=== PATIENT | male | born 1970 | race Caucasian/White ===

== ENCOUNTER → 2017-03-04 | Outpatient (CLI) | payer MEDICAID ==
--- NOTE | 2017-03-04 11:11 | CPEKG ---
Heart Rate: 59 RR Interval: 1017 P-R Interval: 168 QRSD Interval: 96 QT Interval: 412 QTC Interval: 409 P Dix: 62 QRS Dix: 73 T Wave Dix: -34 EKG Severity - NORMAL ECG - EKG Impression: SINUS RHYTHM Electronically Signed By: Elgin Nettles 04-Mar-2017 17:35:43
== END ==
LOC: FCP 10:45
PROVIDERS: ATTEND Nurse Practitioner Psychiatric/Mental Health
DX: Z13.6 Encounter for screening for cardiovascular disorders (principal)

== ENCOUNTER 2018-04-18 23:32 | Emergency (ER) | payer MEDICAID ==
[2018-04-18 23:41] VITALS: BP 138/88
[2018-04-18] MEDS ORDERED: OXYCODONE/APAP 5/325 TAB PO ONE (23:52)
--- NOTE | 2018-04-18 23:56 | EDPHY ---
H & P Stated Complaint: Fell going down cement steps onto right knee. Pain progressively worse Time Seen by Provider: 04/18/18 23:53 HPI/ROS: HPI: This is a 47-year-old male who presents with Chief Complaint: Fell going down cement steps and twisted right knee. Pain progressively worse Location: Right KNEE Quality: Injury Duration: Prior to arrival Signs and Symptoms: No bleeding, no radiation, no numbness, no weakness, no tingling, no incontinence, + decreased range of motion, + swelling, + pain, no fever Timing: Acute Severity: Moderate Context: Patient presents accompanied by his , with complaints of accidentally twisting his knee while walking to the [employer] stand to purchase a hot dogs at his son's football game. He has some placed in the marching band they were there to watch the half time show. Patient reports that he twisted his knee somehow and felt immediate, constant, nonradiating pain. Pain is increased with weight-bearing. He was wearing crux at the time. He reports that the pain is worsened with flexion of the knee and has now noted over the last hour mild swelling of the knee. Denies radiation, weakness, paresthesias. Patient reports that he fell recently at work and had a shoulder injury and landed directly on his right knee. 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 Modifying Factors: None Comment: ROS: A comprehensive 10 system review of systems is otherwise negative aside from elements mentioned in the history of present illness. MEDICAL/SURGICAL/SOCIAL HISTORY: Medical history: diabetes insipidus, bipolar, high cholesterol Surgical history: Denies Social history: . Employed. CONSTITUTIONAL: Polite and cooperative middle-aged white male, awake and alert , no obvious distress HEENT: Atraumatic and normocephalic. NECK: supple EXTREMITIES: 2/2 pulses, strength 5/5, right KNEE: Mild effusion, + medial and lateral joint line tenderness, full extension to 180, flexion to 90. Mild pain with varus and valgus exam. Mild pain with anterior drawer or posterior drawer test. DIP/PIP/MCP flexion/extension intact with good light touch sensation. no deformities, no clubbing, no cyanosis or edema. NEUROLOGICAL: no focal neuro deficits. GCS 15. Light touch sensation intact. SKIN: Warm and dry, no erythema. no rash. Good capillary refill. Source: Patient Exam Limitations: No limitations - Personal History Current Tetanus Diphtheria and Acellular Pertussis (TDAP): Unsure - Medical/Surgical History Hx Asthma: No Hx Chronic Respiratory Disease: No Hx Diabetes: No Hx Cardiac Disease: Yes Hx Renal Disease: No Hx Cirrhosis: No Hx Alcoholism: No Hx HIV/AIDS: No Hx Splenectomy or Spleen Trauma: No Other PMH: diabestes insipidus. bipolar, high cholesterol - Social History Smoking Status: Never smoked Constitutional: Initial Vital Signs Temperature (C) 36.8 C 04/18/18 23:38 Heart Rate 71 04/18/18 23:38 Respiratory Rate 16 04/18/18 23:38 Blood Pressure 138/88 H 04/18/18 23:38 O2 Sat (%) 99 04/18/18 23:38 O2 Delivery Mode Room Air Allergies/Adverse Reactions: No Known Allergies Allergy (Unverified 09/17/09 01:27) Home Medications: Medication Instructions Recorded Aspirin [Aspirin 81mg (OTC)] 81 mg PO HS 04/30/12 Carvedilol [Coreg (RX)] 6.25 mg PO BIDMEAL 04/30/12 Divalproex [Depakote 500 MG (RX)] 500 mg PO BID 04/30/12 Multivitamins [Multivitamin (OTC)] 1 each PO DAILY 04/30/12 Pravastatin Sodium 40 mg PO DAILY 04/30/12 QUETIAPINE FUMARATE [Seroquel Xr] 300 mg PO HS 04/30/12 QUEtiapine FUMARATE [Seroquel 300 mg PO HS 04/30/12 300mg (RX)] Verapamil HCl [Verapamil ER] 120 mg PO DAILY 04/30/12 lamOTRIGine [LamICTAL] 12.5 mg PO DAILY 04/30/12 risperiDONE [Risperdal 1mg (RX)] 2.5 mg PO HS 04/30/12 oxyCODONE/APAP 5/325 [Percocet 1 - 2 tab PO Q4H PRN #10 tab 04/18/18 5/325 (*)] Medical Decision Making ED Course/Re-evaluation: The x-ray ordered and via PAC shows no dislocation. + mild effusion noted, + patellar irregularity concerning for fracture Ice pack applied and given Percocet with adequate pain relief Concern for internal derangement Placed in knee immobilizer, crutches provided, orthopedic follow-up No signs of neurovascular compromise/tenting of skin/compartment syndrome/ extremities and joints examined above and below area of concern and are neurovascularly intact. This patient was seen under the supervision of my secondary supervising physician. I evaluated care for this patient independently. Discussed this patient with Dr. Crawley. Differential Diagnosis: Knee injury while [] including but not limited to fracture, ACL injury, contusion, muscular strain, and meniscus injury. - Data Points Medications Given: Discontinued Medications Oxycodone/Acetaminophen (Percocet 5/325) 1 tab PO EDNOW ONE Stop: 04/18/18 23:53 Last Admin: 04/19/18 00:24 Dose: 1 tab Departure - Departure Disposition: Home, Routine, Self-Care Clinical Impression: Effusion of right knee joint Sprain of right knee Qualifiers: Encounter type: initial encounter Involved ligament of knee: unspecified ligament Qualified Code(s): S83.91XA - Sprain of unspecified site of right knee , initial encounter Patella fracture Qualifiers: Encounter type: initial encounter Fracture type: closed Fracture morphology: unspecified fracture morphology Fracture alignment: nondisplaced Laterality: right Qualified Code(s): S82.001A - Unspecified fracture of right patella, initial encounter for closed fracture Condition: Good Instructions: Knee Sprain (ED), Knee Immobilizer (ED) Additional Instructions: Wear the knee immobilizer while out of bed until pain free. Use crutches to aid ambulation. Start with toe-touch weight-bearing status and slowly advance as tolerated. Take Tylenol 650 mg every 4 hours and/or Ibuprofen 600 mg every 8 hours with food as needed for pain. Use Percocet every 6 hours as needed for severe/break through pain. Do not use Tylenol and Percocet concomitantly. Apply ice for 30 minutes at a time; 2-3 times per day for the next 1-2 days. Follow up with Orthopedics in 3-5 days at which time they will evaluate and recommend with you if conservative management versus MRI of the knee is indicated. Referrals: Ramses Bearden MD [Primary Care Provider] - As per Instructions Monroe Howell MD [Medical Doctor] - As per Instructions Stand Alone Forms: Work Excuse Prescriptions: oxyCODONE/APAP 5/325 [Percocet 5/325 (*)] 1 - 2 tab PO Q4H PRN #10 tab PRN Reason: Pain, Severe
== END 2018-04-19 01:08 | disposition home or self-care (01) ==
DX: S83.91XA Sprain of unspecified site of right knee, initial encounter (principal); M25.461 Effusion, right knee; W10.9XXA Fall (on) (from) unspecified stairs and steps, initial encounter; Y92.321 Football field as the place of occurrence of the external cause; Y93.01 Activity, walking, marching and hiking
CPT/HCPCS: L1830

== ENCOUNTER 2018-06-15 16:32 | Emergency (ER) | payer MEDICAID ==
--- NOTE | 2018-06-15 17:02 | EDPHY ---
H & P Stated Complaint: congestion, sore throat for 3 days Time Seen by Provider: 06/15/18 16:34 HPI/ROS: 48 yo M presents c/o sore throat, nasal congestion for 3-4 days and is here because he would like a work note. No fevers or chills. Review of systems As per HPI-positive URI symptoms General no fever no chills no weakness HEENT no eye pain no eye discharge. No eye redness, positive sore throat Respiratory positive cough, no shortness of breath Cardiac no chest pain, no peripheral edema GI no abdominal pain, no diarrhea, no constipation, no nausea, no vomiting no flank pain, no hematuria, no dysuria Musculoskeletal no myalgias, no joint pain Heme no easy bruising, no easy bleeding Endo no polyuria, no polydipsia Skin no rashes, no pruritus Neuro no syncope, no dizziness, no headaches Psych is no suicidal ideation, no homicidal ideation Source: Patient Exam Limitations: No limitations - Personal History Current Tetanus Diphtheria and Acellular Pertussis (TDAP): Unsure - Medical/Surgical History Hx Asthma: No Hx Chronic Respiratory Disease: No Hx Diabetes: No Hx Cardiac Disease: Yes Hx Renal Disease: No Hx Cirrhosis: No Hx Alcoholism: No Hx HIV/AIDS: No Hx Splenectomy or Spleen Trauma: No Other PMH: diabetes insipidus. bipolar, high cholesterol,pneumonia,2 myocardial infarction,ear surgery - Family History Significant Family History: No pertinent family hx - Social History Smoking Status: Never smoked Alcohol Use: None Drug Use: None - Physical Exam Exam: 48-year-old male Alert and oriented nontoxic appearance, no acute distress afebrile Atraumatic normocephalic Extraocular muscles intact, anicteric Nares mild yellowish discharge Oropharynx mild erythema no tonsillar swelling no exudate no uvular deviation, tolerating own secretions Neck supple no lymphadenopathy Lungs clear to auscultation bilaterally Heart regular rate and rhythm Abdomen normoactive bowel sounds soft nontender Extremities no cyanosis clubbing or edema Skin no rash Constitutional: Initial Vital Signs Temperature (C) 36.9 C 06/15/18 16:41 Heart Rate 92 06/15/18 16:41 Respiratory Rate 16 06/15/18 16:41 Blood Pressure 122/93 H 06/15/18 16:41 O2 Sat (%) 94 06/15/18 16:41 O2 Delivery Mode Room Air Allergies/Adverse Reactions: No Known Allergies Allergy (Verified 06/15/18 16:39) Home Medications: Medication Instructions Recorded Aspirin [Aspirin 81mg (OTC)] 81 mg PO HS 04/30/12 Carvedilol [Coreg (RX)] 6.25 mg PO BIDMEAL 04/30/12 Divalproex [Depakote 500 MG (RX)] 500 mg PO BID 04/30/12 Multivitamins [Multivitamin (OTC)] 1 each PO DAILY 04/30/12 Pravastatin Sodium 40 mg PO DAILY 04/30/12 QUEtiapine FUMARATE [Seroquel 300 mg PO HS 04/30/12 300mg (RX)] Verapamil HCl [Verapamil ER] 120 mg PO DAILY 04/30/12 lamOTRIGine [LamICTAL] 12.5 mg PO DAILY 04/30/12 risperiDONE [Risperdal 1mg (RX)] 2.5 mg PO HS 04/30/12 Medical Decision Making ED Course/Re-evaluation: Patient seen and evaluated for cold symptoms, sore throat, cough. Rapid strep negative Impression Viral syndrome, URI Plan Discharge Differential Diagnosis: Differential diagnosis considered but not limited to: URI, bronchitis, pneumonia, sore throat, viral syndrome, sinus congestion - Data Points Point of Care Test Results: Strep Strep Throat Swab Collection 06/15/18 Date Strep Throat Swab Swab 17:20 Collection Time Strep Result Not Detected Departure - Departure Disposition: Home, Routine, Self-Care Clinical Impression: Nasal sinus congestion, Bronchitis Condition: Good Instructions: Upper Respiratory Infection (ED), Viral Syndrome (ED) Referrals: Ramses Bearden MD [Primary Care Provider] - As per Instructions Stand Alone Forms: Work Excuse
[2018-06-15 17:55] VITALS: BP 120/88
== END 2018-06-15 17:45 | disposition home or self-care (01) ==
LOC: CED 16:32
DX: J20.9 Acute bronchitis, unspecified (principal); R09.81 Nasal congestion; E23.2 Diabetes insipidus; F31.9 Bipolar disorder, unspecified; E78.00 Pure hypercholesterolemia, unspecified; I25.2 Old myocardial infarction